=== PATIENT | male | born 1990 | race African-American/Black ===

== ENCOUNTER 2022-03-04 16:49 | Emergency (ER) | payer OTHER ==
[~2022-03-04] VITALS: Ht 180.3 cm; Wt 145.1 kg
[2022-03-04 17:00] VITALS: BP_SYST 158
--- NOTE | 2022-03-04 17:00 | NUR ---
BROUGHT BACK TO BED #7 AND TRIAGED, REPORT GIVEN TO GOMEZ
[2022-03-04] MEDS ORDERED: NAPR-690 PO (17:23)
--- NOTE | 2022-03-04 17:28 | NUR ---
PT WAS EXAMINED BY DR. ABDULLAHI THEN D/C'D HOME WITH RX. PT WALKED OUT ED IN STEADY GAIT.
[2022-03-04 17:32] VITALS: BP_SYST 124
== END 2022-03-04 17:32 | disposition home or self-care (01) ==
LOC: SED 16:49
DX: J02.8 Acute pharyngitis due to other specified organisms (principal); B97.89 Other viral agents as the cause of diseases classified elsewhere; F17.290 Nicotine dependence, other tobacco product, uncomplicated; Z71.6 Tobacco abuse counseling
CPT/HCPCS: 99282